=== PATIENT | male | born 1975 | race Caucasian/White ===

== ENCOUNTER 2016-12-05 08:43 | Emergency (ER) | payer OTHER ==
[~2016-12-05 08:43] MED LIST: AMBIEN10 MG; FLEXERIL10 MG PO; IBUPROFEN800 MG PO; LORTAB 101 TAB 10/5 PO; NEURONTIN300 MG PO; NO MEDICATIONS; NORCO 10-325 TA1 TAB PO; OMEPRAZOLE20 M2; TALWIN NX50 MG TAB; TORADOL10 MG PO; ZANTAC300 MG PO
== END 2016-12-05 10:00 | disposition home or self-care (01) ==
LOC: SED 08:43
DX: M51.17 Intervertebral disc disorders with radiculopathy, lumbosacral region (principal); F17.210 Nicotine dependence, cigarettes, uncomplicated; Z98.890 Other specified postprocedural states; Z79.899 Other long term (current) drug therapy; X58.XXXA Exposure to other specified factors, initial encounter; Y92.009 Unspecified place in unspecified non-institutional (private) residence as the place of occurrence of the external cause
CPT/HCPCS: 96372; 99283; J1885

== ENCOUNTER 2017-01-10 20:53 | Emergency (ER) | payer OTHER ==
[~2017-01-10] VITALS: Ht 175.3 cm; Wt 74.8 kg
== END 2017-01-10 22:08 | disposition home or self-care (01) ==
LOC: SED 20:53
DX: S39.012A Strain of muscle, fascia and tendon of lower back, initial encounter (principal); F17.200 Nicotine dependence, unspecified, uncomplicated; X50.0XXA Overexertion from strenuous movement or load, initial encounter
CPT/HCPCS: 96372; 99283; J1040; J1170